=== PATIENT | male | born 1955 | race Caucasian/White ===

== ENCOUNTER 2019-10-30 11:46 | Outpatient (CLI) | payer MEDICARE ==
[2019-10-30 14:16] LABS: #Basophils 0.1 thou/uL (0.0-0.2); #Eosinphils 0.3 thou/uL (0.0-0.7); #Monocytes 0.9 thou/uL (0.11-0.59); #Neutrophils 3.3 thou/uL (1.40-6.50); %Eosinophils 5.3 % (0.0-10.0); %Lymphocytes 29.9 % (21.0-51.0); %Monocytes 13.3 % (0.0-10.0); %Neutrophils 50.5 % (42.0-75.0); Hemoglobin 13.2 g/dL (14.0-18.0); Mean Corpuscular HGB CONC 31.9 g/dL (32.0-36.0); Mean Corpuscular Hemoglobin 27.6 pg (27.0-31.0); Mean Corpuscular Volume 86.6 fL (78.0-98.0); Mean Platelet Volume 7.3 fL (7.4-10.4); Platelet Count 315 thou/uL (130-400); RBC Distribution Width 13.9 % (11.5-14.5); Red Blood Cell (RBC) Count 4.77 mill/uL (4.70-6.10); White Blood Cell (WBC) Count 6.5 thou/uL (4.8-10.8)
[2019-10-30 14:36] LABS: Anion Gap 11 mmol/L (10-20); BUN (Urea Nitrogen) 15 mg/dL (8.4-25.7); Calc. Creatinine Clearance 0 mL/min (70-130); Calcium 9.7 mg/dL (7.8-10.44); Carbon Dioxide 28 mmol/L (23-31); Chloride 103 mmol/L (98-107); Estimated GFR-MDRD Greater than 90; Glucose 99 mg/dL (80-115); Potassium 4.4 mmol/L (3.5-5.1); Sodium 138 mmol/L (136-145)
== END 2019-10-30 11:47 | disposition home or self-care (01) ==
LOC: LABBT 11:46 → EDSTATUS 11-12 11:15
PROVIDERS: ATTEND Specialist
DX: Z01.818 Encounter for other preprocedural examination (principal); K43.2 Incisional hernia without obstruction or gangrene
CPT/HCPCS: 80048; 85025; 93005; 93010

== ENCOUNTER 2019-11-12 09:49 | Day surgery (SDC) | payer MEDICARE ==
[2019-10-30 12:00] VITALS: BMI 47.5
[2019-11-12] MEDS ORDERED: Ketorolac Tromethamine 30 MG/ML VIAL ONE (10:44)
[2019-11-12] MEDS ORDERED: Bupivacaine PF 0.5% 30 ML VIAL ONE (11:32)
[2019-11-12] MEDS ORDERED: Lidocaine 1% w/Epinephrine 1:100K 20 ML VIAL ONE (11:32)
[2019-11-12] MEDS ORDERED: Midazolam HCl 2 mg/2 ml Vial ONE (11:39)
[2019-11-12] MEDS ORDERED: Fentanyl 250 MCG/5 ML VIAL ONE (11:39)
[2019-11-12] MEDS ORDERED: Fentanyl 100 MCG/2 ML VIAL ONE (15:03)
[2019-11-12] MEDS ORDERED: HYDROcodone/Acetaminophen 5/325 mg Tablet ONE (16:10)
--- NOTE | 2019-11-13 11:59 | OP ---
DATE OF PROCEDURE: 11/12/2019 PREOPERATIVE DIAGNOSIS: Ventral incisional hernia. POSTOPERATIVE DIAGNOSES: Ventral incisional hernia with two dominant defects and a couple of tiny defects. PROCEDURE PERFORMED: Laparoscopic lysis of adhesions to the anterior abdominal wall, robotic repair of ventral incisional hernias with mesh using an 11-cm circular Ventralex mesh patch. ANESTHESIA: General endotracheal. INDICATIONS: The patient is a morbidly obese 63-year-old white male. 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 When it was repaired in [place] earlier this year, although there was some degree of recognition of superior hernia as well, this was now repaired at the time of his initial operation. He is taken to the operating room at this time for repair of an obvious visible and palpable hernia in approximately the upper midline incision. This seems to protrude primarily to the right side of the incision. DESCRIPTION OF OPERATION: Informed consent was obtained. The patient was taken to the operating room, where general endotracheal anesthesia was obtained with the patient in supine position. The typical antiembolism garments could not be placed on his lower legs due to massive and extensive lymphedema. Abdomen was prepped with ChloraPrep and draped in sterile fashion. Local anesthetic was infiltrated and an 11-mm lateral incision was created on the left side of his mid abdomen. A Veress needle was passed through this into the peritoneal cavity and pneumoperitoneum was established using carbon dioxide up to pressure of 15 mmHg. A long 11-mm port was placed. Under direct vision, I was able to place an 8 mm left lower quadrant port. I was unable to place anything in the left upper quadrant due to adhesions apparently related to his splenectomy. I introduced a lateral 5-mm port and using this as well as the initial 11-mm port was able to mobilize the adhesions to the anterior abdominal wall using a combination of sharp and blunt dissection. I was able to eventually clear any lateral to medial fashion all the adhesions to the anterior abdominal wall. As it approached the midline, I decided to do further adhesiolysis to robotic dissection. There were adhesions involving the transverse colon up to the abdominal wall. These appeared to have a generous mesentery of fatty tissue and there was no point of which I was dissecting immediately adjacent to bowel. I then placed an 8-mm left upper quadrant port. The robot was docked to the 3 ports as well as the camera and instruments were passed inside. The operation was continued from the robotic console. I dissected the remaining adhesions to the anterior abdominal wall towards the obvious sites of the hernia. There was one hernia that was visible initially. There was a small amount of fatty tissue herniated within this. This appeared to be about 2 cm in diameter. The hernia edges below this did not appear to be any larger, but there was a dominant amount of incarcerated material within this hernia. I had dissected the adhesions between the rim of the hernia defect and the herniated contents. This appeared to all be omentum. As the adhesions were mobilized and the tissue was reduced, I was eventually able to reduce all hernia contents and dissect the entire anterior abdominal wall. The recognized anatomy was that he had 2 adjacent hernias, each appearing to be about 2 cm in diameter. The total vertical length between the two was approximately 5 cm. Just inferior to the area of his recent hernia repair, this appeared to have been repaired in a transverse fashion with suture only and no mesh. I could not discern if these were interrupted sutures or a running suture. Nonetheless, this area appeared to be weakening with a small visible gap in some of the fascial edges. Just superior to this suture line were two tiny hernia defects, each appeared to measure about 0.5 cm. I obtained a #1 Stratafix Prolene suture. I repaired the primary dominant defects with a running suture of this #1 suture. It was closed in a to-and-fro fashion. I used 0 running Stratafix suture to repair the two tiny defects as well as place a running suture across the recent hernia repair to further strengthen the closure in that area. I obtained an 11-cm Ventralex mesh patch. This was a circular patch, which I trimmed down to an 11 x 8 cm oval mesh patch. This was passed into the abdominal cavity. It was held in place in the desired location using the two sutures from the prior fascial closure. I then sutured the edges of the mesh patch circumferentially with a running suture of 2-0 PDS Stratafix suture. The mesh edges were well approximated to the anterior abdominal wall and it was ascertained that the coated side of the mesh was facing the viscera. After this was placed and all areas of dissection were inspected for hemostasis, the operation was returned from the console to the patient's bedside. The robot was undocked. The fascial defect at the 11-mm port site was closed with 0 Vicryl suture using a GraNee needle. All ports and instruments were removed under direct vision. Pneumoperitoneum was carefully evacuated. 0.25% Marcaine with epinephrine was infiltrated at each port site. Skin edges approximated with 4-0 Monocryl subcuticular suture. Dermabond was placed externally. There were no complications. The patient tolerated the procedure well and was taken to recovery room in stable condition. He did appear to have a slight bulge at the prior hernia site. I am not certain if this is gas or an early seroma. I instructed the family in regard to this. I suspect it will resolve spontaneously with time. He was instructed to wear his abdominal binder upon return to home. Job ID: [id number]
== END 2019-11-12 17:00 | disposition home or self-care (01) ==
LOC: SDC 09:49
PROVIDERS: ATTEND Specialist
PROC: 0WUF4JZ Supplement Abdominal Wall with Synthetic Substitute, Percutaneous Endoscopic Approach (ICD-10-PCS; principal; 2019-11-12)
DX: K43.2 Incisional hernia without obstruction or gangrene (principal); E66.01 Morbid (severe) obesity due to excess calories; Z68.42 Body mass index [BMI] 45.0-49.9, adult; Z79.2 Long term (current) use of antibiotics; Z79.899 Other long term (current) drug therapy; Z88.1 Allergy status to other antibiotic agents; Z91.040 Latex allergy status; Z90.81 Acquired absence of spleen
CPT/HCPCS: 49654; C1781; J0131; J0690; J1885; J2250; J3010; S0020

== ENCOUNTER 2020-05-29 10:09 | Outpatient (CLI) | payer MEDICARE ==
--- NOTE | 2020-05-29 10:53 | RAD ---
3 views of the right knee: 05/29/2020 COMPARISON: None available HISTORY: Lymphedema of right leg, pain and swelling, constantly draining ulcer since November FINDINGS: Extensive postoperative hardware is present with incompletely visualized intramedullary nita s within the distal femur and proximal tibia. Bone cement is seen within the distal femoral shaft and proximal tibial shaft. No soft tissue gas. No acute fracture or dislocation. There is a lucency along the medial and lateral aspect of the intramedullary cement within the proxim al tibia, chronicity uncertain. This could be on the basis of prior surgery, trauma, or prior infection. IMPRESSION: Extensive postoperative change. No subcutaneous gas or acute fracture/dislocation. If the re is clinical concern for osteomyelitis given provided history of chronic draining ulcer, nuclear medicine white blood cell scan may be beneficial.
== END 2020-05-29 10:10 | disposition home or self-care (01) ==
LOC: SCSRAD 10:09
PROVIDERS: ATTEND Nurse Practitioner Family
DX: I87.311 Chronic venous hypertension (idiopathic) with ulcer of right lower extremity (principal); L97.812 Non-pressure chronic ulcer of other part of right lower leg with fat layer exposed; Z98.890 Other specified postprocedural states

== ENCOUNTER 2020-06-12 06:42 | Outpatient (CLI) | payer MEDICARE ==
--- NOTE | 2020-06-12 17:57 | NM ---
WHOLE BODY PLANAR RADIONUCLIDE WHITE BLOOD CELL SCAN WITH PET CT OF THE ABDOMEN: HISTORY: Wound in the right churchill which is 3 cm long and continuously draining. RADIOPHARMACEUTICAL: 23.3 millicuries technetium 99m HMPAO labeled WBCs. FINDINGS: There is physiologic activity in the liver, spleen and bone marrow. No abnormal areas of tracer local ization is seen in the lower extremities. There are foci of increased uptake in the left hemiabdomen and the lower abdomen slightly to the righ t of midline. These are likely within the loops of bowel. IMPRESSION: 1. No scintigraphic evidence of acute infection in the lower extremities. 2. If there is concern for abdominal symptoms, further evaluation with CT scan of the abdomen an d pelvis (with oral and IV contrast) would be helpful. POS: OFF
== END 2020-06-12 06:43 | disposition home or self-care (01) ==
LOC: NM 06:42
PROVIDERS: ATTEND Nurse Practitioner Family
DX: I87.311 Chronic venous hypertension (idiopathic) with ulcer of right lower extremity (principal); L97.812 Non-pressure chronic ulcer of other part of right lower leg with fat layer exposed
CPT/HCPCS: 78806; A4641; A9521

== ENCOUNTER 2020-10-22 11:39 | Outpatient (CLI) | payer MEDICARE ==
--- NOTE | 2020-10-22 12:46 | RAD ---
4 views of the lumbar spine: 10/22/2020 COMPARISON: None HISTORY: Lumbar radiculopathy, lumbar disc disease FINDINGS: The lumbar pedicles appear intact on frontal imaging. The neutral lateral exam demonstrates anterolisthesis at L4-5 measuring approximately 1.1 cm. There is disc space narrowing with degenerative endplate change at the L2-3, L3-4, and L4-5 levels. The extension imaging demonstrates L4-5 anterolisthesis measuring in the 9 mm range. Upon flexion, an terolisthesis at the L4-5 level increases to 1.6 cm IMPRESSION: Multilevel lower lumbar spine degenerative change with anterolisthesis of L4 on L5, most prominent with flexion.
--- NOTE | 2020-10-22 13:15 | MRI ---
MRI of thelumbar spine: 10/22/2020 COMPARISON:None available HISTORY:Back pain, radiculopathy TECHNIQUE: Multiplanar multisequence MR imaging of thelumbar spine without contrast Findings:The sagittal STIR imaging demonstrates degenerative edematous endplate change at L4-5 latera lly on the right as well as centrally at L2-3. On the basis of 5 lumbar type vertebral bodies, the conus medullaris terminates at the L1 level. T12-L1: Mild bilateral facet hypertrophy. No central canal or neural foraminal stenosis. L1-2: Mild bilateral facet hypertrophy. Disc space and with disc desiccation and mild disc bulge. Mil d bilateral neural foraminal stenosis. No central canal stenosis. L2-3: There is disc space narrowing with disc desiccation and mild disc bulge. Bilateral facet hypert rophy. Mild central canal stenosis. Moderate right and mild left neural foraminal stenosis. L3-4: Bilateral facet hypertrophy. Disc space and with disc desiccation and mild disc bulge. Mild michelle tral canal stenosis. Moderate right and mild left neural foraminal stenosis. L4-5: Disc space narrowing with disc desiccation and prominent bilateral facet hypertrophy. Ligamentu m flavum hypertrophy bilaterally with moderate/severe central canal stenosis, severe right neural foraminal stenosis, and moderate left neural foraminal stenosis. There is 1.2 cm of anterolisthesis. L5-S1: There is disc space narrowing with disc desiccation and mild disc bulge. No central canal sten osis. Bilateral facet hypertrophy with mild bilateral neural foraminal stenosis. Image retroperitoneal structures demonstrate no acute findings. Nonspecific distention of the, and il iac veins and IVC noted. IMPRESSION:Multilevel lumbar spine degenerative change as detailed above, most prominent at L4-5.
== END 2020-10-22 11:40 | disposition home or self-care (01) ==
LOC: MRI 11:39
PROVIDERS: ATTEND Family Medicine
DX: M47.26 Other spondylosis with radiculopathy, lumbar region (principal); G89.4 Chronic pain syndrome; M51.16 Intervertebral disc disorders with radiculopathy, lumbar region; M48.062 Spinal stenosis, lumbar region with neurogenic claudication; M43.16 Spondylolisthesis, lumbar region
CPT/HCPCS: 72120; 72148

== ENCOUNTER 2021-03-18 12:07 | Outpatient (CLI) | payer MEDICARE | END 2021-03-18 12:08 | disposition home or self-care (01) | LOC: RAD 12:07 | PROVIDERS: ATTEND Internal Medicine Infectious Disease | DX: S81.001A Unspecified open wound, right knee, initial encounter (principal); D72.829 Elevated white blood cell count, unspecified; M79.89 Other specified soft tissue disorders; R93.7 Abnormal findings on diagnostic imaging of other parts of musculoskeletal system; M89.9 Disorder of bone, unspecified ==

== ENCOUNTER 2021-11-04 16:30 | Outpatient (CLI) | payer MEDICARE | END 2021-11-04 16:31 | disposition home or self-care (01) | LOC: SLEEPLAB 16:30 | PROVIDERS: ATTEND Internal Medicine | DX: G47.33 Obstructive sleep apnea (adult) (pediatric) (principal); E66.9 Obesity, unspecified; G47.31 Primary central sleep apnea; Z68.43 Body mass index [BMI] 50.0-59.9, adult | CPT/HCPCS: 95806 ==

== ENCOUNTER 2021-12-09 19:30 | Outpatient (CLI) | payer MEDICARE | END 2021-12-09 19:31 | disposition home or self-care (01) | LOC: SLEEPLAB 19:30 | PROVIDERS: ATTEND Internal Medicine | DX: G47.33 Obstructive sleep apnea (adult) (pediatric) (principal); R06.83 Snoring; G47.10 Hypersomnia, unspecified; E66.9 Obesity, unspecified; Z68.43 Body mass index [BMI] 50.0-59.9, adult | CPT/HCPCS: 95811 ==

== ENCOUNTER 2024-05-10 14:59 | Emergency (ER) | payer MEDICARE ==
[2024-05-10 16:25] LABS: #Basophils 0.03 10x3/uL (0.0-0.2); #Eosinphils Less than 0.03 10x3/uL (0.0-0.7); %Basophils 0.3 % (0.0-1.0); %Eosinophils 0.2 % (0.0-10.0); %Lymphocytes 9.2 % (21.0-51.0); %Monocytes 6.9 % (0.0-10.0); Hematocrit 42.7 % (42.0-52.0); Hemoglobin 14.1 g/dL (14.0-18.0); Mean Corpuscular Hemoglobin 29.3 pg (27.0-31.0); Mean Corpuscular Volume 88.6 fL (78.0-98.0); Mean Platelet Volume 8.6 fL (7.4-10.4); Platelet Count 264 10x3/uL (130-400); RBC Distribution Width 14.9 % (11.5-14.5); Red Blood Cell (RBC) Count 4.82 mill/uL (4.70-6.10)
[2024-05-10 16:28] LABS: Bacteria/HPF None Seen HPF (None Seen); Bilirubin Negative (Negative); Blood, Urine 2+ (Negative); CAUTI Indications for Culture Dysuria,urgency,freq; Clarity Clear (Clear); Glucose, Urine (Dipstick) Normal (Negative); Ketone, Urine Negative (Negative); Leukocyte Negative Leu/uL (Negative); Nitrite Negative (Negative); Protein, Urine (Dipstick) Negative (Neg-Trace); RBC/HPF Greater than 50 HPF (0-3); Specific Gravity, Urine 1.011 (1.002-1.036); Squamous Epithelial None Seen HPF (0-3); Urobilinogen Normal mg/dL (Less than 2); WBC/HPF 0-3 HPF (0-3)
[2024-05-10 16:31] LABS: Urine Culture Reflex No No
[2024-05-10 16:40] LABS: ALT (SGPT) 18 U/L (8-55); AST (SGOT) 22 U/L (5-34); Albumin 3.9 g/dL (3.4-4.8); Alkaline Phosphatase 54 U/L (40-110); Anion Gap 15 mmol/L (10-20); BUN (Urea Nitrogen) 14 mg/dL (8.4-25.7); Bilirubin, Total 0.4 mg/dL (0.2-1.2); Calc. Creatinine Clearance 0 mL/min (70-130); Calcium 9.6 mg/dL (7.8-10.44); Carbon Dioxide 21 mmol/L (23-31); Chloride 103 mmol/L (98-107); Estimated GFR 84; Glucose 130 mg/dL (80-115); Lipase 42 U/L (8-78); Potassium 4.2 mmol/L (3.5-5.1); Protein, Total 7.9 g/dL (5.8-8.1); Sodium 135 mmol/L (136-145)
== END 2024-05-10 18:59 | disposition home or self-care (01) ==
LOC: ERS 14:59
DX: R33.9 Retention of urine, unspecified (principal); R31.29 Other microscopic hematuria; N40.1 Benign prostatic hyperplasia with lower urinary tract symptoms; E78.5 Hyperlipidemia, unspecified
CPT/HCPCS: 36415; 51702; 74177; 80053; 81001; 83690; 85025; 94760

== ENCOUNTER 2024-05-15 17:24 | Emergency (ER) | payer MEDICARE ==
[2024-05-15 21:48] LABS: Bacteria/HPF None Seen HPF (None Seen); Bilirubin Negative (Negative); Blood, Urine 3+ (Negative); CAUTI Indications for Culture Acute Hematuria; Clarity Turbid (Clear); Glucose, Urine (Dipstick) Normal (Negative); Ketone, Urine Negative (Negative); Leukocyte 75 Leu/uL (Negative); Nitrite Negative (Negative); Protein, Urine (Dipstick) 100 mg/dL (Neg-Trace); RBC/HPF Greater than 50 HPF (0-3); Specific Gravity, Urine 1.031 (1.002-1.036); Squamous Epithelial None Seen HPF (0-3); Urobilinogen Normal mg/dL (Less than 2)
[2024-05-15 21:49] LABS: Urine Culture Reflex Yes Yes
[2024-05-15] MEDS ORDERED: HYDROcodone/Acetaminophen 10/325 mg Tablet ONE (23:00)
== END 2024-05-15 23:55 | disposition home or self-care (01) ==
LOC: ERS 17:24
DX: T83.011A Breakdown (mechanical) of indwelling urethral catheter, initial encounter (principal); R31.9 Hematuria, unspecified; Z95.0 Presence of cardiac pacemaker
CPT/HCPCS: 74176; 81001; 87086

== ENCOUNTER 2024-05-24 15:23 | Emergency (ER) | payer MEDICARE ==
[2024-05-24 16:25] LABS: #Basophils 0.04 10x3/uL (0.0-0.2); %Basophils 0.5 % (0.0-1.0); %Eosinophils 2.5 % (0.0-10.0); %Lymphocytes 18.2 % (21.0-51.0); %Monocytes 10.6 % (0.0-10.0); %Neutrophils 67.8 % (42.0-75.0); Hematocrit 39.4 % (42.0-52.0); Hemoglobin 12.7 g/dL (14.0-18.0); Mean Corpuscular HGB CONC 32.2 g/dL (32.0-36.0); Mean Corpuscular Hemoglobin 27.9 pg (27.0-31.0); Mean Corpuscular Volume 86.4 fL (78.0-98.0); Mean Platelet Volume 8.4 fL (7.4-10.4); Platelet Count 320 10x3/uL (130-400); RBC Distribution Width 14.6 % (11.5-14.5); Red Blood Cell (RBC) Count 4.56 mill/uL (4.70-6.10)
[2024-05-24 16:45] LABS: ALT (SGPT) 17 U/L (8-55); AST (SGOT) 27 U/L (5-34); Albumin 3.5 g/dL (3.4-4.8); Alkaline Phosphatase 54 U/L (40-110); Anion Gap 15 mmol/L (10-20); BUN (Urea Nitrogen) 11 mg/dL (8.4-25.7); Bilirubin, Total 0.4 mg/dL (0.2-1.2); Calc. Creatinine Clearance 0 mL/min (70-130); Calcium 9.4 mg/dL (7.8-10.44); Carbon Dioxide 23 mmol/L (23-31); Chloride 105 mmol/L (98-107); Estimated GFR 98; Globulin 4.2 g/dL (2.4-3.5); Glucose 118 mg/dL (80-115); Potassium 4.6 mmol/L (3.5-5.1); Protein, Total 7.7 g/dL (5.8-8.1); Sodium 138 mmol/L (136-145)
[2024-05-24 17:36] LABS: Bacteria/HPF None Seen HPF (None Seen); Bilirubin Negative (Negative); Blood, Urine 3+ (Negative); CAUTI Indications for Culture Dysuria,urgency,freq; Clarity Turbid (Clear); Glucose, Urine (Dipstick) Normal (Negative); Ketone, Urine Negative (Negative); Leukocyte 25 Leu/uL (Negative); Nitrite Negative (Negative); Protein, Urine (Dipstick) 30 mg/dL (Neg-Trace); RBC/HPF Greater than 50 HPF (0-3); Specific Gravity, Urine 1.021 (1.002-1.036); Squamous Epithelial 0-3 HPF (0-3); Urobilinogen Normal mg/dL (Less than 2); WBC/HPF 0-3 HPF (0-3)
[2024-05-24 17:49] LABS: Urine Culture Reflex No No
[2024-05-24] MEDS ORDERED: Phenazopyridine HCl 100 MG TAB ONE (17:57)
== END 2024-05-24 20:10 | disposition home or self-care (01) ==
LOC: ERS 15:23
DX: T83.091A Other mechanical complication of indwelling urethral catheter, initial encounter (principal); L03.116 Cellulitis of left lower limb; Z95.0 Presence of cardiac pacemaker; M79.89 Other specified soft tissue disorders; Z89.611 Acquired absence of right leg above knee
CPT/HCPCS: 36415; 51702; 80053; 81001; 85025; 87086